=== PATIENT | male | born 1940 | race Caucasian/White ===

== ENCOUNTER 2020-04-13 14:26 | Emergency (ER) | payer MEDICARE, OTHER, SELFPAY ==
[2020-04-13 14:58] VITALS: BP 127/57; PULSE 103; RESP 20; TEMP 36.6; O2SAT 94
--- NOTE | 2020-04-13 15:05 | ED.SKABFB ---
HPI - Skin/Abscess/Foreign Bdy General Chief complaint: Skin/Abscess/Foreign Body Stated complaint: Cellulitis Time Seen by Provider: 04/13/20 15:01 Source: patient Mode of arrival: Ambulatory Limitations: no limitations History of Present Illness HPI narrative: 79-year-old male who was sent over to the emergency department by the dermatology clinic for concerns of ?sepsis? patient underwent a Mohs surgery and a skin graft approximately 2 weeks ago. He contact the dermatology clinic today as he was concerned about having infection secondary some redness. He also had chills this morning. He was seen by the dermatology clinic. Was sent to the emergency department because of concern for sepsis because he was ?panting?. Related Data Home Medications Medication Instructions Recorded Confirmed latanoprost [Xalatan] 1 drp OPHTH HS #0 11/11/10 04/13/20 brinzolamide [Azopt] 1 drp EYE-BOTH BID 04/13/20 04/13/20 finasteride 5 mg PO DAILY 04/13/20 04/13/20 metformin 500 mg PO BID 04/13/20 04/13/20 metoprolol tartrate 50 mg PO BID 04/13/20 04/13/20 rosuvastatin 40 mg PO DAILY 04/13/20 04/13/20 trazodone 100 mg PO BEDTIME 04/13/20 04/13/20 warfarin 10 mg PO DAILY 04/13/20 04/13/20 zolpidem 10 mg PO DAILY 04/13/20 04/13/20 Previous Rx's Medication Instructions Recorded cephalexin [Keflex] 500 mg PO QID 7 Days #28 cap 04/13/20 Allergies Allergy/AdvReac Type Severity Reaction Status Date / Time No Known Drug Allergies Allergy Verified 04/13/20 15:02 Review of Systems Constitutional Constitutional: Reports chills and Denies fever(s) Cardiovascular Cardiovascular: Denies dyspnea Respiratory Respiratory: Denies cough and Denies dyspnea Integumentary/Breasts Comments: Redness around his left hand Neurologic Neurologic: Denies behavioral changes Psychiatric Psychiatric: Denies behavioral changes Hematologic/Lymphatic Hematologic/Lymphatic: Denies easy bleeding and Denies easy bruising Allergic/Immunologic Allergic/Immunologic: Denies urticaria Patient History Medical History Diabetes Social History Smoking Status: Former smoker Smoking Status: Former smoker alcohol intake frequency: other Substance Use Type: does not use Exam Initial Vital Signs Initial Vital Signs: Vital Signs Temperature 97.8 F 04/13/20 14:58 Pulse Rate 103 H 04/13/20 14:58 Respiratory Rate 20 04/13/20 14:58 Blood Pressure 127/57 L 04/13/20 14:58 Pulse Oximetry 94 04/13/20 14:58 Const General: cooperative and comfortable Cardio Pulses: radial pulses present on the left Skin Other: Patient does have the postsurgical dressings in place over the dorsum of the left hand radial aspect. He does have redness surrounding the area extending somewhat into the left thumb. Neuro General: patient alert and patient awake Speech: speech normal Extrem General: capillary refill normal Course Orders Ordered: ED Orders 04/13/20 15:06 Blood Culture Stat 04/13/20 15:20 Basic Metabolic Panel Stat Complete Blood Count AUTO DIFF Stat Lactate (Lactic Acid) Stat Procalcitonin Stat Discontinued Medications Cephalexin HCl (Cephalexin 250 Mg Capsule) 500 mg PO NOW ONE Stop: 04/13/20 16:20 Vital Signs Vital signs: Vital Signs - 8 hr 04/13/20 14:58 Temperature 97.8 F Pulse Rate 103 H Respiratory Rate 20 Blood Pressure 127/57 L Pulse Oximetry 94 MDM - Skin/Abscess/Foreign Bdy Lab Data Attestation: I reviewed the patient's lab results. Result diagrams: 04/13/20 15:20 04/13/20 15:20 Labs: Lab Results 04/13/20 04/13/20 04/13/20 Range/Units 15:20 15:20 15:20 WBC 7.7 (4.5-11.0) X10^3/uL RBC 4.30 L (4.5-5.9) X10^6/uL Hgb 12.6 L (13.5-17.5) g/dL Hct 38.1 L (41-53) % MCV 88.6 (80-100) fL MCH 29.4 (26-34) PG MCHC 33.2 (30-36) % RDW 16.3 H (11.6-14.8) % Plt Count 129 L (150-400) X10^3/uL Neut % (Auto) 91.4 H (50-75) % Lymph % (Auto) 2.8 L (25-40) % [place] % (Auto) 5.3 (3-14) % Eos % (Auto) 0.1 L (2-4) % Baso % (Auto) 0.4 (0-2) % Neut # (Auto) 7000 (9264-5310) /uL Lymph # (Auto) 200 L (3777-6250) /uL [place] # (Auto) 400 (0-900) /uL Eos # (Auto) 0 (0-450) /uL Baso # (Auto) 0 (0-100) /uL Sodium 135 L (137-145) mmol/L Potassium 4.1 (3.4-5.1) mmol/L Chloride 102 (98-107) mmol/L Carbon Dioxide 29 (22-32) mmol/L BUN 20 (9-20) mg/dL Creatinine 0.93 (0.66-1.25) mg/dL Estimated GFR > 60.0 (>60) mL/min BUN/Creatinine Ratio 21.5 (6-22) Glucose 134 H (80-110) mg/dL Lactate (0.7-2.1) mmol/L Calcium 8.9 (8.4-10.2) mg/dL Procalcitonin 7.71 H (<0.5) ng/mL 04/13/20 Range/Units 15:20 WBC (4.5-11.0) X10^3/uL RBC (4.5-5.9) X10^6/uL Hgb (13.5-17.5) g/dL Hct (41-53) % MCV (80-100) fL MCH (26-34) PG MCHC (30-36) % RDW (11.6-14.8) % Plt Count (150-400) X10^3/uL Neut % (Auto) (50-75) % Lymph % (Auto) (25-40) % [place] % (Auto) (3-14) % Eos % (Auto) (2-4) % Baso % (Auto) (0-2) % Neut # (Auto) (2574-5910) /uL Lymph # (Auto) (3331-2709) /uL [place] # (Auto) (0-900) /uL Eos # (Auto) (0-450) /uL Baso # (Auto) (0-100) /uL Sodium (137-145) mmol/L Potassium (3.4-5.1) mmol/L Chloride (98-107) mmol/L Carbon Dioxide (22-32) mmol/L BUN (9-20) mg/dL Creatinine (0.66-1.25) mg/dL Estimated GFR (>60) mL/min BUN/Creatinine Ratio (6-22) Glucose (80-110) mg/dL Lactate 1.7 (0.7-2.1) mmol/L Calcium (8.4-10.2) mg/dL Procalcitonin (<0.5) ng/mL MDM Narrative Medical decision making narrative: Patient is afebrile. Does not have a leukocytosis. Normal lactate. Does have an elevated procalcitonin. Redness around his left hand is concerning for infection. Low suspicion for sepsis. Attempted to contact [facility] skin clinic however was unable to get anyone to answer the phone so will start the patient on Keflex and discharged home. He is going to contact them tomorrow to discuss follow-up. He already has an appointment scheduled on Sunday. He was given return precautions. Blood cultures obtained prior to discharge. He expressed understanding and agreement with plan. Discharge Plan Departure Patient Disposition: Home Clinical Impression: Cellulitis Instructions: DI for Cellulitis -- Adult Activity Restrictions/Additional Instructions: Recommend that you start taking the antibiotics as directed. Tomorrow contact your social research assistant to discuss follow-up. Return to the emergency department for any new or worsening symptoms Prescriptions: New cephalexin [Keflex] 500 mg capsule 500 mg PO QID 7 Days Qty: 28 RF: 0 No Action latanoprost [Xalatan] 0.005 % drops 1 drp OPHTH HS Qty: 0 RF: 0 metformin 500 mg tablet 500 mg PO BID RF: 0 Azopt 1 % drops,suspension 1 drp EYE-BOTH BID RF: 0 metoprolol tartrate 50 mg tablet 50 mg PO BID RF: 0 finasteride 5 mg tablet 5 mg PO DAILY RF: 0 rosuvastatin 40 mg tablet 40 mg PO DAILY RF: 0 warfarin 5 mg tablet 10 mg PO DAILY RF: 0 zolpidem 10 mg tablet 10 mg PO DAILY RF: 0 trazodone 100 mg Tablet 100 mg PO BEDTIME RF: 0 Referrals: Jameson Dean MD [Primary Care Provider] -
[2020-04-13 15:29] LABS: Add Manual Diff / Slide Review NO; Basophils Absolute Auto 0 /uL (0-100); Basophils Percent Auto 0.4 % (0-2); Eosinophils Absolute Auto 0 /uL (0-450); Eosinophils Percent Auto 0.1 % (2-4); Hematocrit 38.1 % (41-53); Hemoglobin 12.6 g/dL (13.5-17.5); Lymphocytes Absolute Auto 200 /uL (1100-4500); Lymphocytes Percent Auto 2.8 % (25-40); Mean Corpuscular HGB Conc 33.2 % (30-36); Mean Corpuscular Hemoglobin 29.4 PG (26-34); Mean Corpuscular Volume 88.6 fL (80-100); Monocytes Absolute Auto 400 /uL (0-900); Monocytes Percent Auto 5.3 % (3-14); Neutrophils Absolute Auto 7000 /uL (1500-7000); Neutrophils Percent Auto 91.4 % (50-75); Platelet Count 129 X10^3/uL (150-400); Red Cell Distribution Width 16.3 % (11.6-14.8); White Blood Cell Count 7.7 X10^3/uL (4.5-11.0)
[2020-04-13 15:40] LABS: BUN Creatinine Ratio 21.5 (6-22); Blood Urea Nitrogen 20 mg/dL (9-20); Calcium 8.9 mg/dL (8.4-10.2); Carbon Dioxide 29 mmol/L (22-32); Chloride 102 mmol/L (98-107); Estimated Glomerular Filt Rate > 60.0 mL/min (>60); Glucose 134 mg/dL (80-110); HEMOLYSIS < 15 (0-50); Lactate (Lactic Acid) 1.7 mmol/L (0.7-2.1); Potassium 4.1 mmol/L (3.4-5.1); Sodium 135 mmol/L (137-145)
[2020-04-13 15:56] LABS: Procalcitonin 7.71 ng/mL (<0.5)
[2020-04-13] MEDS: cephALEXin 250 MG CAPSULE 500 MG PO (16:37)
[2020-04-13 16:39] VITALS: BP 105/58; PULSE 100; RESP 16; O2SAT 99
== END 2020-04-13 16:40 | disposition home or self-care (01) ==
PROVIDERS: Emergency Provider Emergency Medicine; Family Provider Internal Medicine; PCP Internal Medicine
DX: L03.114 Cellulitis of left upper limb (principal)
CPT/HCPCS: 36415; 80048; 83605; 84145; 85025; 87040; 99283